=== PATIENT | female | born 1935 | race Caucasian/White ===

== ENCOUNTER 2020-07-10 17:27 | Inpatient (IN) ==
[2020-07-10 17:52] LABS: Basophils % 0.5 % (0.0-0.8); Eosinophils # 0.1 10*3/uL (0.0-0.87); Hematocrit 29.5 VOL% (35.7-47.0); Hemoglobin 9.6 GM/DL (12.0-16.0); Immature Granulocytes % 0.3 %; Immature Granulocytes Absolute 0.01 #; Lymphocytes # 1.3 10*3/uL (1.4-4.0); Lymphocytes % 33.5 % (21.3-54.2); Mean Corpuscular HGB Conc 32.5 GM/DL (32-36); Mean Corpuscular Volume 94.2 FL (87-102); Mean Platelet Volume 11.4 FL (9.6-12.0); Monocytes % 10.5 % (1.7-12.7); Neutrophils % 52.2 % (38.7-73.9); Platelet Count 162 T/CUMM (130-400); Red Blood Count 3.13 MC/CUMM (3.8-5.5); Red Cell Distribution Width 14.5 % (9.3-17.3)
[2020-07-10 18:04] LABS: INR 1.1; PT Patient Result 11.3 SECS (9.8-11.9); Partial Thromboplastin Time 25.6 SECS (23.9-33.8)
[2020-07-10 18:12] LABS: Albumin 3.2 G/DL (3.4-5.0); Calcium 8.5 MG/DL (8.5-10.1); Osmolality,Calculated 267.5 MOS/KG (273-304); Potassium 4.3 MMOL/L (3.5-5.1); Total Protein 6.5 G/DL (5.0-7.5)
[2020-07-10] MEDS ORDERED: FUROSEMIDE 40 MG/4 ML VIAL IV STA (18:57)
[2020-07-10] MEDS ORDERED: hydrALAZINE 20 MG/1 ML VIAL IV PRN (20:24)
[2020-07-10] MEDS ORDERED: GLUCAGON 1 MG VIAL IM PRN (20:24)
[2020-07-10] MEDS ORDERED: DEXTROSE 50% 25 GM/50 ML VIAL IV PRN (20:24)
[2020-07-10 20:53] LABS: Thyroid Stimulating Hormone 3.06 uIU/ml (0.358-3.74)
[2020-07-10] MEDS ORDERED: carvediloL 25 MG TABLET PO SCH (21:00)
[2020-07-10 21:18] LABS: Bacteria,Urine Occasional /HPF (Few); Bilirubin,Urine Negative (Negative); Blood, Urine Negative (Negative); Glucose,Urine (UA) Negative (Negative); Ketones,Urine Negative (Negative); Mucus,Urine Occasional /LPF (Occasional); Nitrite,Urine Negative (Negative); Protein,Urine Negative; RBC,Urine <1 /HPF (0-4); Squamous Epithelial Cell,Urine Occasional /HPF (0-10); Urine Appearance CLEAR (Clear); Urine Color Colorless (Yellow); Urine Specific Gravity 1.004 (1.001-1.035); Urine Urobilinogen < 2.0 EU/DL (0.2-1.0); WBC,Urine <1 /HPF (0-6)
[2020-07-10] MEDS: carvediloL 6.25 MG TABLET PO SCH (22:21)
[2020-07-10] MEDS: ENOXAPARIN 40 MG/0.4 ML SYRINGE SUBCUT SCH (22:22)
[2020-07-11] MEDS: LEVOTHYROXINE 50 MCG TABLET PO SCH (06:04)
[2020-07-11 06:33] LABS: Basophils % 0.2 % (0.0-0.8); Eosinophils % 0.4 % (0.00-10.9); Hematocrit 30.8 VOL% (35.7-47.0); Hemoglobin 10.1 GM/DL (12.0-16.0); Immature Granulocytes % 0.4 %; Immature Granulocytes Absolute 0.02 #; Lymphocytes # 1.1 10*3/uL (1.4-4.0); Lymphocytes % 21.1 % (21.3-54.2); Mean Corpuscular HGB Conc 32.8 GM/DL (32-36); Mean Corpuscular Volume 93.1 FL (87-102); Mean Platelet Volume 12.2 FL (9.6-12.0); Neutrophils % 70.9 % (38.7-73.9); Platelet Count 159 T/CUMM (130-400); Red Blood Count 3.31 MC/CUMM (3.8-5.5); Red Cell Distribution Width 14.1 % (9.3-17.3); White Blood Count 5.3 T/CUMM (4-12)
[2020-07-11 06:57] LABS: Albumin 3.3 G/DL (3.4-5.0); Bilirubin,Total 1.2 MG/DL (0.2-1.0); Calcium 8.4 MG/DL (8.5-10.1); Osmolality,Calculated 259.9 MOS/KG (273-304); Potassium 3.8 MMOL/L (3.5-5.1); Risk Ratio 2.9; VLDL CHOLESTEROL 16.2 MG/DL
[2020-07-11] MEDS ORDERED: ALBUTEROL/IPRATROPIUM 3 ML NEB RESP TX PRN (08:09)
[2020-07-11] MEDS ORDERED: FUROSEMIDE 40 MG/4 ML VIAL IV ONE (08:37)
[2020-07-11 08:59] LABS: % Iron Saturation 10.9 % (18-50); Ferritin 205.7 ng/ml (8-252)
[2020-07-11] MEDS ORDERED: lisinopriL 2.5 MG TABLET PO SCH (09:00)
[2020-07-11 09:02] LABS: Folate 14.3 NG/ML (5.38-24.0)
[2020-07-11] MEDS: FUROSEMIDE 40 MG/4 ML VIAL IV SCH ×2 (09:23→16:06)
[2020-07-11] MEDS: CALCIUM (CARBONATE)/VITAMIN D 600 MG-400 UNIT TABLET PO SCH (09:25)
[2020-07-11] MEDS: FERROUS SULFATE 325 MG TABLET PO SCH (09:25)
[2020-07-11] MEDS: carvediloL 6.25 MG TABLET PO SCH ×2 (09:26→20:39)
[2020-07-11] MEDS: CHOLECALCIFEROL 1,000 UNIT TABLET PO SCH (09:26)
[2020-07-11] MEDS: amLODIPine 2.5 MG TABLET PO SCH (09:26)
[2020-07-11] MEDS: ASPIRIN EC 81 MG TABLET PO SCH (09:26)
[2020-07-11] MEDS: ROSUVASTATIN 20 MG TABLET PO SCH (09:26)
[2020-07-11] MEDS: PANTOPRAZOLE 40 MG TABLET PO SCH (09:26)
[2020-07-11] MEDS: SPIRONOLACTONE 25 MG TABLET PO SCH (16:06)
[2020-07-11 16:38] LABS: Glucose,Pleural Fluid 121 MG/DL; LDH,Pleural Fluid 76 U/L
[2020-07-11 16:48] LABS: Lymphocytes,Pleural Fluid 71 %; Monocytes,Pleural Fluid 29 %
[2020-07-11 16:49] LABS: RBC,Pleural Fluid 387 T/CUMM
[2020-07-11] MEDS: ACETAMINOPHEN 325 MG TABLET PO PRN (20:39)
[2020-07-11] MEDS: ENOXAPARIN 40 MG/0.4 ML SYRINGE SUBCUT SCH (20:39)
[2020-07-12 05:36] LABS: Basophils % 0.5 % (0.0-0.8); Eosinophils # 0.1 10*3/uL (0.0-0.87); Eosinophils % 3.2 % (0.00-10.9); Hematocrit 25.8 VOL% (35.7-47.0); Hemoglobin 8.7 GM/DL (12.0-16.0); Lymphocytes # 1.6 10*3/uL (1.4-4.0); Lymphocytes % 41.7 % (21.3-54.2); Mean Corpuscular HGB Conc 33.7 GM/DL (32-36); Mean Corpuscular Volume 90.5 FL (87-102); Mean Platelet Volume 11.9 FL (9.6-12.0); Monocytes % 10.6 % (1.7-12.7); Platelet Count 145 T/CUMM (130-400); Red Blood Count 2.85 MC/CUMM (3.8-5.5); Red Cell Distribution Width 13.7 % (9.3-17.3); White Blood Count 3.8 T/CUMM (4-12)
[2020-07-12 06:04] LABS: Calcium 8.1 MG/DL (8.5-10.1); Osmolality,Calculated 261.7 MOS/KG (273-304); Potassium 3.3 MMOL/L (3.5-5.1)
[2020-07-12] MEDS: LEVOTHYROXINE 50 MCG TABLET PO SCH (06:16)
[2020-07-12] MEDS: CHOLECALCIFEROL 1,000 UNIT TABLET PO SCH (08:54)
[2020-07-12] MEDS: PANTOPRAZOLE 40 MG TABLET PO SCH (08:54)
[2020-07-12] MEDS: amLODIPine 2.5 MG TABLET PO SCH (08:54)
[2020-07-12] MEDS: ROSUVASTATIN 20 MG TABLET PO SCH (08:54)
[2020-07-12] MEDS: lisinopriL 20 MG TABLET PO SCH (08:54)
[2020-07-12] MEDS: ASPIRIN EC 81 MG TABLET PO SCH (08:54)
[2020-07-12] MEDS: FERROUS SULFATE 325 MG TABLET PO SCH (08:55)
[2020-07-12] MEDS: FUROSEMIDE 40 MG/4 ML VIAL IV SCH (08:55)
[2020-07-12] MEDS: SPIRONOLACTONE 25 MG TABLET PO SCH (08:55)
[2020-07-12] MEDS: CALCIUM (CARBONATE)/VITAMIN D 600 MG-400 UNIT TABLET PO SCH (08:55)
[2020-07-12] MEDS: carvediloL 6.25 MG TABLET PO SCH ×2 (08:55→20:14)
[2020-07-12] MEDS ORDERED: MAGNESIUM SULF RIDER 2 GM in PREMIX 1 EACH IV ONE (10:17)
[2020-07-12] MEDS ORDERED: POTASSIUM CHLORIDE 20 MEQ TABLET PO ONE (10:17)
[2020-07-12] MEDS: FUROSEMIDE 40 MG TABLET PO SCH (15:55)
[2020-07-12] MEDS: traZODone 50 MG TABLET PO SCH (20:14)
[2020-07-12] MEDS: ENOXAPARIN 40 MG/0.4 ML SYRINGE SUBCUT SCH (20:14)
[2020-07-13 05:37] LABS: Calcium 8.3 MG/DL (8.5-10.1); Osmolality,Calculated 269.1 MOS/KG (273-304); Potassium 3.6 MMOL/L (3.5-5.1)
[2020-07-13] MEDS: LEVOTHYROXINE 50 MCG TABLET PO SCH (06:32)
[2020-07-13] MEDS: CHOLECALCIFEROL 1,000 UNIT TABLET PO SCH (08:59)
[2020-07-13] MEDS: amLODIPine 2.5 MG TABLET PO SCH (08:59)
[2020-07-13] MEDS: FUROSEMIDE 40 MG TABLET PO SCH ×2 (08:59→16:03)
[2020-07-13] MEDS: ASPIRIN EC 81 MG TABLET PO SCH (08:59)
[2020-07-13] MEDS: FERROUS SULFATE 325 MG TABLET PO SCH (08:59)
[2020-07-13] MEDS: ROSUVASTATIN 20 MG TABLET PO SCH (08:59)
[2020-07-13] MEDS: CALCIUM (CARBONATE)/VITAMIN D 600 MG-400 UNIT TABLET PO SCH (09:00)
[2020-07-13] MEDS: FOLIC ACID 0.4 MG TABLET PO SCH (09:00)
[2020-07-13] MEDS: lisinopriL 20 MG TABLET PO SCH (09:00)
[2020-07-13] MEDS: PANTOPRAZOLE 40 MG TABLET PO SCH (09:00)
[2020-07-13] MEDS: carvediloL 6.25 MG TABLET PO SCH ×2 (09:00→20:17)
[2020-07-13] MEDS: SPIRONOLACTONE 25 MG TABLET PO SCH (09:00)
[2020-07-13] MEDS: ONDANSETRON 4 MG/2 ML VIAL IV PRN ×2 (12:19→21:25)
[2020-07-13] MEDS: ENOXAPARIN 40 MG/0.4 ML SYRINGE SUBCUT SCH (20:17)
[2020-07-13] MEDS: traZODone 50 MG TABLET PO SCH (20:17)
[2020-07-14] MEDS: LEVOTHYROXINE 50 MCG TABLET PO SCH (06:05)
[2020-07-14] MEDS: ASPIRIN EC 81 MG TABLET PO SCH (09:05)
[2020-07-14] MEDS: carvediloL 6.25 MG TABLET PO SCH ×2 (09:05→20:17)
[2020-07-14] MEDS: amLODIPine 2.5 MG TABLET PO SCH (09:05)
[2020-07-14] MEDS: SPIRONOLACTONE 25 MG TABLET PO SCH (09:05)
[2020-07-14] MEDS: CALCIUM (CARBONATE)/VITAMIN D 600 MG-400 UNIT TABLET PO SCH (09:05)
[2020-07-14] MEDS: FERROUS SULFATE 325 MG TABLET PO SCH (09:05)
[2020-07-14] MEDS: FUROSEMIDE 40 MG TABLET PO SCH ×2 (09:05→16:24)
[2020-07-14] MEDS: lisinopriL 20 MG TABLET PO SCH (09:05)
[2020-07-14] MEDS: PANTOPRAZOLE 40 MG TABLET PO SCH ×2 (09:05→20:17)
[2020-07-14] MEDS: CHOLECALCIFEROL 1,000 UNIT TABLET PO SCH (09:05)
[2020-07-14] MEDS: ROSUVASTATIN 20 MG TABLET PO SCH (09:05)
[2020-07-14] MEDS: FOLIC ACID 0.4 MG TABLET PO SCH (09:05)
[2020-07-14 10:27] LABS: Hematocrit 32.7 VOL% (35.7-47.0); Hemoglobin 11.1 GM/DL (12.0-16.0)
[2020-07-14] MEDS: traZODone 50 MG TABLET PO SCH (20:17)
[2020-07-15 06:01] LABS: Basophils % 0.3 % (0.0-0.8); Eosinophils # 0.1 10*3/uL (0.0-0.87); Eosinophils % 1.3 % (0.00-10.9); Hematocrit 29.7 VOL% (35.7-47.0); Immature Granulocytes % 0.3 %; Immature Granulocytes Absolute 0.02 #; Lymphocytes # 1.5 10*3/uL (1.4-4.0); Lymphocytes % 21.8 % (21.3-54.2); Mean Corpuscular HGB Conc 33.7 GM/DL (32-36); Mean Corpuscular Volume 92.2 FL (87-102); Mean Platelet Volume 11.5 FL (9.6-12.0); Monocytes % 9.6 % (1.7-12.7); Neutrophils % 66.7 % (38.7-73.9); Platelet Count 154 T/CUMM (130-400); Red Blood Count 3.22 MC/CUMM (3.8-5.5)
[2020-07-15] MEDS: LEVOTHYROXINE 50 MCG TABLET PO SCH (06:20)
[2020-07-15 06:27] LABS: Calcium 8.4 MG/DL (8.5-10.1); Osmolality,Calculated 270.1 MOS/KG (273-304); Potassium 3.3 MMOL/L (3.5-5.1)
[2020-07-15] MEDS: CHOLECALCIFEROL 1,000 UNIT TABLET PO SCH (09:55)
[2020-07-15] MEDS: CALCIUM (CARBONATE)/VITAMIN D 600 MG-400 UNIT TABLET PO SCH (09:55)
[2020-07-15] MEDS: ASPIRIN EC 81 MG TABLET PO SCH (09:55)
[2020-07-15] MEDS: FOLIC ACID 0.4 MG TABLET PO SCH (09:55)
[2020-07-15] MEDS: FERROUS SULFATE 325 MG TABLET PO SCH (09:55)
[2020-07-15] MEDS: carvediloL 6.25 MG TABLET PO SCH ×2 (09:55→20:49)
[2020-07-15] MEDS: SPIRONOLACTONE 25 MG TABLET PO SCH (09:55)
[2020-07-15] MEDS: amLODIPine 2.5 MG TABLET PO SCH (09:55)
[2020-07-15] MEDS: PANTOPRAZOLE 40 MG TABLET PO SCH ×2 (09:55→20:49)
[2020-07-15] MEDS: lisinopriL 20 MG TABLET PO SCH (09:56)
[2020-07-15] MEDS: ROSUVASTATIN 20 MG TABLET PO SCH (09:56)
[2020-07-15] MEDS: FUROSEMIDE 40 MG TABLET PO SCH ×2 (09:57→16:13)
[2020-07-15] MEDS ORDERED: POTASSIUM CHLORIDE 10 MEQ TABLET PO ONE (12:42)
[2020-07-15] MEDS: ONDANSETRON 4 MG/2 ML VIAL IV PRN ×2 (16:58→22:37)
[2020-07-15] MEDS: traZODone 50 MG TABLET PO SCH (20:49)
[2020-07-16 04:42] LABS: Basophils % 0.3 % (0.0-0.8); Eosinophils # 0.2 10*3/uL (0.0-0.87); Eosinophils % 3.4 % (0.00-10.9); Hematocrit 28.5 VOL% (35.7-47.0); Hemoglobin 9.3 GM/DL (12.0-16.0); Immature Granulocytes % 0.6 %; Immature Granulocytes Absolute 0.04 #; Lymphocytes # 1.7 10*3/uL (1.4-4.0); Lymphocytes % 25.4 % (21.3-54.2); Mean Corpuscular HGB Conc 32.6 GM/DL (32-36); Mean Corpuscular Volume 93.8 FL (87-102); Mean Platelet Volume 11.2 FL (9.6-12.0); Monocytes % 11.9 % (1.7-12.7); Neutrophils % 58.4 % (38.7-73.9); Platelet Count 163 T/CUMM (130-400); Red Blood Count 3.04 MC/CUMM (3.8-5.5); Red Cell Distribution Width 14.1 % (9.3-17.3); White Blood Count 6.5 T/CUMM (4-12)
[2020-07-16 05:04] LABS: Calcium 8.3 MG/DL (8.5-10.1); Osmolality,Calculated 269.4 MOS/KG (273-304); Potassium 3.5 MMOL/L (3.5-5.1)
[2020-07-16] MEDS: LEVOTHYROXINE 50 MCG TABLET PO SCH (06:22)
[2020-07-16] MEDS: ASPIRIN EC 81 MG TABLET PO SCH (10:06)
[2020-07-16] MEDS: carvediloL 6.25 MG TABLET PO SCH ×2 (10:08→20:36)
[2020-07-16] MEDS: CALCIUM (CARBONATE)/VITAMIN D 600 MG-400 UNIT TABLET PO SCH (12:05)
[2020-07-16] MEDS: FERROUS SULFATE 325 MG TABLET PO SCH (12:05)
[2020-07-16] MEDS: ROSUVASTATIN 20 MG TABLET PO SCH (12:05)
[2020-07-16] MEDS: FOLIC ACID 0.4 MG TABLET PO SCH (12:05)
[2020-07-16] MEDS: SPIRONOLACTONE 25 MG TABLET PO SCH (12:05)
[2020-07-16] MEDS: CHOLECALCIFEROL 1,000 UNIT TABLET PO SCH (12:06)
[2020-07-16] MEDS: PANTOPRAZOLE 40 MG TABLET PO SCH ×2 (12:06→20:36)
[2020-07-16] MEDS: amLODIPine 2.5 MG TABLET PO SCH (12:06)
[2020-07-16] MEDS ORDERED: diphenhydrAMINE CAP 25 MG CAPSULE PO ONE (12:30)
[2020-07-16] MEDS ORDERED: ceFAZolin 1,000 MG in SYRINGE 1 EACH IV ONE (12:30)
[2020-07-16] MEDS ORDERED: DIAZEPAM 5 MG TABLET PO ONE (12:30)
[2020-07-16] MEDS ORDERED: LIDOCAINE 1%/EPI INJ 20 ML VIAL ONE (12:45)
[2020-07-16] MEDS ORDERED: ceFAZolin 1,000 MG VIAL ONE (12:45)
[2020-07-16] MEDS ORDERED: TISSUE ADHESIVE 1 EACH APPLICATOR TOP ONE (12:45)
[2020-07-16] MEDS ORDERED: ceFAZolin 1,000 MG VIAL IRRIG ONE (13:30)
[2020-07-16] MEDS ORDERED: propofoL 200 MG/20 ML VIAL IV ONE (15:09)
[2020-07-16] MEDS ORDERED: PHENYLEPHRINE 1 MG/10 ML SYRINGE IV ONE (15:10)
[2020-07-16] MEDS ORDERED: ETOMIDATE 40 MG/20 ML VIAL IV ONE (15:10)
[2020-07-16] MEDS: traMADol 50 MG TABLET PO PRN (20:36)
[2020-07-16] MEDS: traZODone 50 MG TABLET PO SCH (20:36)
[2020-07-17] MEDS: LEVOTHYROXINE 50 MCG TABLET PO SCH (06:03)
[2020-07-17 06:12] LABS: Basophils % 0.4 % (0.0-0.8); Eosinophils # 0.4 10*3/uL (0.0-0.87); Eosinophils % 5.5 % (0.00-10.9); Hematocrit 30.3 VOL% (35.7-47.0); Hemoglobin 10.2 GM/DL (12.0-16.0); Immature Granulocytes % 0.4 %; Immature Granulocytes Absolute 0.03 #; Lymphocytes # 1.8 10*3/uL (1.4-4.0); Mean Corpuscular HGB Conc 33.7 GM/DL (32-36); Mean Corpuscular Volume 92.7 FL (87-102); Monocytes % 11.3 % (1.7-12.7); Neutrophils % 57.4 % (38.7-73.9); Platelet Count 132 T/CUMM (130-400); Red Blood Count 3.27 MC/CUMM (3.8-5.5); Red Cell Distribution Width 13.9 % (9.3-17.3); White Blood Count 7.3 T/CUMM (4-12)
[2020-07-17 06:36] LABS: Hypochromasia 1+; Microcytosis 1+; Ovalocytes Few
[2020-07-17 06:37] LABS: Platelet Estimate Adequate
[2020-07-17 06:44] LABS: Calcium 8.6 MG/DL (8.5-10.1); Osmolality,Calculated 271.2 MOS/KG (273-304); Potassium 3.9 MMOL/L (3.5-5.1)
[2020-07-17] MEDS: PANTOPRAZOLE 40 MG TABLET PO SCH ×2 (09:59→20:31)
[2020-07-17] MEDS: SPIRONOLACTONE 25 MG TABLET PO SCH (09:59)
[2020-07-17] MEDS: CHOLECALCIFEROL 1,000 UNIT TABLET PO SCH (09:59)
[2020-07-17] MEDS: ASPIRIN EC 81 MG TABLET PO SCH (09:59)
[2020-07-17] MEDS: FERROUS SULFATE 325 MG TABLET PO SCH (09:59)
[2020-07-17] MEDS: FOLIC ACID 0.4 MG TABLET PO SCH (09:59)
[2020-07-17] MEDS: ROSUVASTATIN 20 MG TABLET PO SCH (09:59)
[2020-07-17] MEDS: lisinopriL 20 MG TABLET PO SCH (10:06)
[2020-07-17] MEDS: CALCIUM (CARBONATE)/VITAMIN D 600 MG-400 UNIT TABLET PO SCH (10:06)
[2020-07-17] MEDS: amLODIPine 2.5 MG TABLET PO SCH (11:09)
[2020-07-17] MEDS: carvediloL 6.25 MG TABLET PO SCH (11:10)
[2020-07-17] MEDS: cefTRIAXone 1,000 MG in SYRINGE 1 EACH IV SCH (13:21)
[2020-07-17] MEDS: AZITHROMYCIN INJ 250 MG in SODIUM CHLORIDE 0.9% 250 ML IV SCH (15:09)
[2020-07-17] MEDS: FUROSEMIDE 40 MG TABLET PO SCH (16:35)
[2020-07-17] MEDS: traZODone 50 MG TABLET PO SCH (20:30)
[2020-07-17] MEDS: ENOXAPARIN 40 MG/0.4 ML SYRINGE SUBCUT SCH (20:31)
[2020-07-17] MEDS: carvediloL 12.5 MG TABLET PO SCH (20:31)
[2020-07-18] MEDS: ACETAMINOPHEN 325 MG TABLET PO PRN ×2 (05:36→18:19)
[2020-07-18 05:58] LABS: Basophils % 0.4 % (0.0-0.8); Eosinophils # 0.3 10*3/uL (0.0-0.87); Eosinophils % 3.6 % (0.00-10.9); Hematocrit 31.9 VOL% (35.7-47.0); Hemoglobin 10.5 GM/DL (12.0-16.0); Immature Granulocytes % 0.6 %; Immature Granulocytes Absolute 0.04 #; Lymphocytes # 1.6 10*3/uL (1.4-4.0); Lymphocytes % 22.5 % (21.3-54.2); Mean Corpuscular HGB Conc 32.9 GM/DL (32-36); Mean Corpuscular Volume 92.2 FL (87-102); Mean Platelet Volume 11.1 FL (9.6-12.0); Neutrophils % 61.9 % (38.7-73.9); Platelet Count 119 T/CUMM (130-400); Red Blood Count 3.46 MC/CUMM (3.8-5.5); Red Cell Distribution Width 13.8 % (9.3-17.3); White Blood Count 7.2 T/CUMM (4-12)
[2020-07-18] MEDS: LEVOTHYROXINE 50 MCG TABLET PO SCH (06:03)
[2020-07-18 06:13] LABS: Calcium 8.9 MG/DL (8.5-10.1); Osmolality,Calculated 268.4 MOS/KG (273-304); Potassium 3.8 MMOL/L (3.5-5.1)
[2020-07-18 06:36] LABS: Hypochromasia 1+; Microcytosis 1+; Ovalocytes Slight
[2020-07-18] MEDS: CHOLECALCIFEROL 1,000 UNIT TABLET PO SCH (08:59)
[2020-07-18] MEDS: ASPIRIN EC 81 MG TABLET PO SCH (08:59)
[2020-07-18] MEDS: FOLIC ACID 0.4 MG TABLET PO SCH (08:59)
[2020-07-18] MEDS: SPIRONOLACTONE 25 MG TABLET PO SCH (08:59)
[2020-07-18] MEDS: lisinopriL 20 MG TABLET PO SCH (08:59)
[2020-07-18] MEDS: ROSUVASTATIN 20 MG TABLET PO SCH (09:00)
[2020-07-18] MEDS: FUROSEMIDE 40 MG TABLET PO SCH ×2 (09:00→16:00)
[2020-07-18] MEDS: carvediloL 12.5 MG TABLET PO SCH ×2 (09:00→20:17)
[2020-07-18] MEDS: CALCIUM (CARBONATE)/VITAMIN D 600 MG-400 UNIT TABLET PO SCH (09:00)
[2020-07-18] MEDS: traMADol 50 MG TABLET PO PRN (09:05)
[2020-07-18] MEDS: PANTOPRAZOLE 40 MG TABLET PO SCH ×2 (09:05→20:15)
[2020-07-18] MEDS: FERROUS SULFATE 325 MG TABLET PO SCH (09:05)
[2020-07-18] MEDS: cefTRIAXone 1,000 MG in SYRINGE 1 EACH IV SCH (11:59)
[2020-07-18] MEDS: AZITHROMYCIN INJ 250 MG in SODIUM CHLORIDE 0.9% 250 ML IV SCH (13:39)
[2020-07-18] MEDS: ENOXAPARIN 40 MG/0.4 ML SYRINGE SUBCUT SCH (20:15)
[2020-07-18] MEDS: traZODone 50 MG TABLET PO SCH (20:17)
[2020-07-19] MEDS: traMADol 50 MG TABLET PO PRN (05:09)
[2020-07-19 05:46] LABS: Basophils % 0.3 % (0.0-0.8); Eosinophils # 0.1 10*3/uL (0.0-0.87); Eosinophils % 1.5 % (0.00-10.9); Hematocrit 26.9 VOL% (35.7-47.0); Immature Granulocytes % 0.4 %; Immature Granulocytes Absolute 0.04 #; Lymphocytes # 1.7 10*3/uL (1.4-4.0); Lymphocytes % 18.4 % (21.3-54.2); Mean Corpuscular HGB Conc 33.5 GM/DL (32-36); Mean Corpuscular Volume 91.8 FL (87-102); Monocytes % 11.1 % (1.7-12.7); Neutrophils % 68.3 % (38.7-73.9); Platelet Count 106 T/CUMM (130-400); Red Blood Count 2.93 MC/CUMM (3.8-5.5); Red Cell Distribution Width 13.5 % (9.3-17.3); White Blood Count 9.3 T/CUMM (4-12)
[2020-07-19 05:48] LABS: Calcium 8.6 MG/DL (8.5-10.1); Osmolality,Calculated 267.5 MOS/KG (273-304); Potassium 3.8 MMOL/L (3.5-5.1)
[2020-07-19] MEDS: LEVOTHYROXINE 50 MCG TABLET PO SCH (06:13)
[2020-07-19 06:26] LABS: Hypochromasia 1+; Microcytosis 1+
[2020-07-19 06:27] LABS: Ovalocytes Few
[2020-07-19 06:28] LABS: Platelet Estimate Adequate
[2020-07-19] MEDS: CALCIUM (CARBONATE)/VITAMIN D 600 MG-400 UNIT TABLET PO SCH (09:45)
[2020-07-19] MEDS: lisinopriL 20 MG TABLET PO SCH (09:45)
[2020-07-19] MEDS: PANTOPRAZOLE 40 MG TABLET PO SCH ×2 (09:45→21:09)
[2020-07-19] MEDS: FUROSEMIDE 40 MG TABLET PO SCH (09:45)
[2020-07-19] MEDS: carvediloL 12.5 MG TABLET PO SCH ×2 (09:46→21:09)
[2020-07-19] MEDS: FOLIC ACID 0.4 MG TABLET PO SCH (09:46)
[2020-07-19] MEDS: SPIRONOLACTONE 25 MG TABLET PO SCH (09:46)
[2020-07-19] MEDS: CHOLECALCIFEROL 1,000 UNIT TABLET PO SCH (09:46)
[2020-07-19] MEDS: ROSUVASTATIN 20 MG TABLET PO SCH (09:46)
[2020-07-19] MEDS: LEVOFLOXACIN INJ 750 MG in PREMIX 1 EACH IV SCH (09:46)
[2020-07-19] MEDS: ASPIRIN EC 81 MG TABLET PO SCH (09:46)
[2020-07-19] MEDS: FERROUS SULFATE 325 MG TABLET PO SCH (09:46)
[2020-07-19] MEDS: ACETAMINOPHEN 325 MG TABLET PO PRN (10:20)
[2020-07-19] MEDS: ONDANSETRON 4 MG/2 ML VIAL IV PRN (17:19)
[2020-07-19] MEDS: traZODone 50 MG TABLET PO SCH (21:09)
[2020-07-20] MEDS: traMADol 50 MG TABLET PO PRN ×2 (05:04→21:24)
[2020-07-20] MEDS: ONDANSETRON 4 MG/2 ML VIAL IV PRN (05:05)
[2020-07-20] MEDS: LEVOTHYROXINE 50 MCG TABLET PO SCH (06:34)
[2020-07-20] MEDS: CALCIUM (CARBONATE)/VITAMIN D 600 MG-400 UNIT TABLET PO SCH (08:20)
[2020-07-20] MEDS: ASPIRIN EC 81 MG TABLET PO SCH (08:20)
[2020-07-20] MEDS: lisinopriL 20 MG TABLET PO SCH (08:20)
[2020-07-20] MEDS: FOLIC ACID 0.4 MG TABLET PO SCH (08:20)
[2020-07-20] MEDS: ROSUVASTATIN 20 MG TABLET PO SCH (08:21)
[2020-07-20] MEDS: PANTOPRAZOLE 40 MG TABLET PO SCH ×2 (08:21→21:24)
[2020-07-20] MEDS: CHOLECALCIFEROL 1,000 UNIT TABLET PO SCH (08:21)
[2020-07-20] MEDS: carvediloL 12.5 MG TABLET PO SCH ×2 (08:21→21:23)
[2020-07-20] MEDS: FERROUS SULFATE 325 MG TABLET PO SCH (08:21)
[2020-07-20] MEDS: FUROSEMIDE 40 MG TABLET PO SCH (08:21)
[2020-07-20] MEDS: SPIRONOLACTONE 25 MG TABLET PO SCH (08:22)
[2020-07-20 08:54] LABS: Basophils % 0.2 % (0.0-0.8); Eosinophils # 0.2 10*3/uL (0.0-0.87); Eosinophils % 2.3 % (0.00-10.9); Hematocrit 26.4 VOL% (35.7-47.0); Immature Granulocytes % 0.5 %; Immature Granulocytes Absolute 0.04 #; Lymphocytes # 1.4 10*3/uL (1.4-4.0); Lymphocytes % 15.7 % (21.3-54.2); Mean Corpuscular HGB Conc 34.1 GM/DL (32-36); Mean Platelet Volume 11.5 FL (9.6-12.0); Monocytes % 11.4 % (1.7-12.7); Neutrophils % 69.9 % (38.7-73.9); Platelet Count 129 T/CUMM (130-400); Red Cell Distribution Width 13.3 % (9.3-17.3); White Blood Count 8.6 T/CUMM (4-12)
[2020-07-20] MEDS: ACETAMINOPHEN 325 MG TABLET PO PRN (09:14)
[2020-07-20 09:19] LABS: Calcium 8.6 MG/DL (8.5-10.1); Osmolality,Calculated 268.8 MOS/KG (273-304); Potassium 4.1 MMOL/L (3.5-5.1)
[2020-07-20 10:10] LABS: Elliptocytes Few; Ovalocytes Few; Platelet Estimate Adequate
[2020-07-20] MEDS: traZODone 50 MG TABLET PO SCH (21:23)
[2020-07-21 03:49] LABS: Basophils % 0.3 % (0.0-0.8); Eosinophils # 0.2 10*3/uL (0.0-0.87); Eosinophils % 3.3 % (0.00-10.9); Hemoglobin 7.9 GM/DL (12.0-16.0); Immature Granulocytes % 0.5 %; Immature Granulocytes Absolute 0.03 #; Lymphocytes # 1.3 10*3/uL (1.4-4.0); Lymphocytes % 21.5 % (21.3-54.2); Mean Corpuscular HGB Conc 32.9 GM/DL (32-36); Mean Corpuscular Volume 91.6 FL (87-102); Monocytes % 12.4 % (1.7-12.7); Platelet Count 120 T/CUMM (130-400); Red Blood Count 2.62 MC/CUMM (3.8-5.5); Red Cell Distribution Width 13.3 % (9.3-17.3)
[2020-07-21 04:11] LABS: Calcium 8.2 MG/DL (8.5-10.1); Osmolality,Calculated 267.8 MOS/KG (273-304); Potassium 3.7 MMOL/L (3.5-5.1)
[2020-07-21 04:59] LABS: Microcytosis Slight; Ovalocytes 1+
[2020-07-21 05:00] LABS: Schistocytes Few
[2020-07-21 05:01] LABS: Platelet Estimate Normal
[2020-07-21] MEDS: LEVOTHYROXINE 50 MCG TABLET PO SCH (06:28)
[2020-07-21] MEDS: PANTOPRAZOLE 40 MG TABLET PO SCH ×2 (08:47→20:22)
[2020-07-21] MEDS: ROSUVASTATIN 20 MG TABLET PO SCH (08:47)
[2020-07-21] MEDS: carvediloL 12.5 MG TABLET PO SCH ×2 (08:47→20:22)
[2020-07-21] MEDS: CHOLECALCIFEROL 1,000 UNIT TABLET PO SCH (08:47)
[2020-07-21] MEDS: CALCIUM (CARBONATE)/VITAMIN D 600 MG-400 UNIT TABLET PO SCH (08:47)
[2020-07-21] MEDS: FERROUS SULFATE 325 MG TABLET PO SCH (08:47)
[2020-07-21] MEDS: ASPIRIN EC 81 MG TABLET PO SCH (08:47)
[2020-07-21] MEDS: FOLIC ACID 0.4 MG TABLET PO SCH (08:47)
[2020-07-21] MEDS: LEVOFLOXACIN INJ 750 MG in PREMIX 1 EACH IV SCH (08:48)
[2020-07-21] MEDS: ACETAMINOPHEN 325 MG TABLET PO PRN (13:50)
[2020-07-21] MEDS: traZODone 50 MG TABLET PO SCH (20:22)
[2020-07-22] MEDS: ACETAMINOPHEN 325 MG TABLET PO PRN (00:11)
[2020-07-22 05:54] LABS: Basophils % 0.4 % (0.0-0.8); Eosinophils # 0.2 10*3/uL (0.0-0.87); Eosinophils % 3.7 % (0.00-10.9); Hematocrit 26.2 VOL% (35.7-47.0); Hemoglobin 8.8 GM/DL (12.0-16.0); Immature Granulocytes % 0.6 %; Immature Granulocytes Absolute 0.03 #; Lymphocytes # 1.3 10*3/uL (1.4-4.0); Lymphocytes % 23.5 % (21.3-54.2); Mean Corpuscular HGB Conc 33.6 GM/DL (32-36); Mean Corpuscular Volume 91.9 FL (87-102); Mean Platelet Volume 11.1 FL (9.6-12.0); Monocytes % 12.2 % (1.7-12.7); Neutrophils % 59.6 % (38.7-73.9); Platelet Count 131 T/CUMM (130-400); Red Blood Count 2.85 MC/CUMM (3.8-5.5); Red Cell Distribution Width 13.1 % (9.3-17.3); White Blood Count 5.4 T/CUMM (4-12)
[2020-07-22] MEDS: LEVOTHYROXINE 50 MCG TABLET PO SCH (06:02)
[2020-07-22 06:11] LABS: Calcium 8.8 MG/DL (8.5-10.1); Osmolality,Calculated 264.9 MOS/KG (273-304); Potassium 4.2 MMOL/L (3.5-5.1)
[2020-07-22 06:22] LABS: Eosinophils 7 % (0-10); Hypochromasia 1+; Lymphocytes 20 % (20-55); Microcytosis 1+; Ovalocytes Slight; Platelet Estimate Normal; Segmented Neutrophils 62 % (50-85); Total Cells Counted 100
[2020-07-22] MEDS: ROSUVASTATIN 20 MG TABLET PO SCH (08:35)
[2020-07-22] MEDS: CHOLECALCIFEROL 1,000 UNIT TABLET PO SCH (08:35)
[2020-07-22] MEDS: carvediloL 12.5 MG TABLET PO SCH (08:35)
[2020-07-22] MEDS: FOLIC ACID 0.4 MG TABLET PO SCH (08:35)
[2020-07-22] MEDS: PANTOPRAZOLE 40 MG TABLET PO SCH (08:36)
[2020-07-22] MEDS: ASPIRIN EC 81 MG TABLET PO SCH (08:36)
[2020-07-22] MEDS: FERROUS SULFATE 325 MG TABLET PO SCH (08:36)
[2020-07-22] MEDS: CALCIUM (CARBONATE)/VITAMIN D 600 MG-400 UNIT TABLET PO SCH (08:40)
[2020-07-22 12:13] VITALS: BP 103/41
== END 2020-07-22 15:32 | disposition swing bed (61) | DRG 226 ==
LOC: N.ED 17:27 → SUATTDRO 20:21 → N.EDINP 20:21 → N.TELES 21:24
PROVIDERS: ADMIT Internal Medicine; ATTEND Internal Medicine

== ENCOUNTER 2022-03-13 14:09 | Inpatient (IN) ==
[2022-03-13] MEDS ORDERED: ALUM/MAG/SIMETH/LIDO VISC 1:1 30 ML BOTTLE PO STA (14:25)
[2022-03-13] MEDS ORDERED: LABETALOL 20 MG/4 ML SYRINGE IV STA (14:25)
[2022-03-13 14:36] LABS: Basophils % 0.6 % (0.0-0.8); Eosinophils # 0.2 10*3/uL (0.0-0.87); Hematocrit 29.6 VOL% (35.7-47.0); Hemoglobin 9.7 GM/DL (12.0-16.0); Immature Granulocytes % 0.4 %; Immature Granulocytes Absolute 0.02 #; Lymphocytes # 1.8 10*3/uL (1.4-4.0); Lymphocytes % 36.4 % (21.3-54.2); Mean Corpuscular HGB Conc 32.8 GM/DL (32-36); Mean Corpuscular Volume 103.1 FL (87-102); Mean Platelet Volume 10.3 FL (9.6-12.0); Monocytes # 0.6 10*3/uL (0.11-0.8); Monocytes % 12.5 % (1.7-12.7); Neutrophils % 46.1 % (38.7-73.9); Platelet Count 137 T/CUMM (130-400); Red Blood Count 2.87 MC/CUMM (3.8-5.5)
[2022-03-13 14:51] LABS: Alanine Aminotransferase 15 U/L (13-56); Albumin 3.4 G/DL (3.4-5.0); Alkaline Phosphatase 52 U/L (45-117); Aspartate Amino Transferase 13 U/L (0-37); Bilirubin,Total < 0.39 MG/DL (0.20-1.00); Blood Urea Nitrogen 39 MG/DL (7-18); Calcium 9.2 MG/DL (8.5-10.1); Carbon Dioxide 26 MMOL/L (21-32); Chloride 108 MMOL/L (98-107); Glucose 99 MG/DL (74-106); Osmolality,Calculated 281.8 MOS/KG (273-304); PT Patient Result 10.7 SECS (10.1-12.1); Potassium 5.7 MMOL/L (3.5-5.1); Sodium 137 MMOL/L (136-145); Total Protein 7.2 G/DL (6.4-8.2)
[2022-03-13] MEDS ORDERED: hydrALAZINE 20 MG/1 ML VIAL IV STA (14:51)
[2022-03-13] MEDS ORDERED: SODIUM CHLORIDE 0.9% 500 ML IV STA (15:04)
[2022-03-13] MEDS ORDERED: NITROGLYCERIN SL 0.4 MG TABLET SL PRN (17:03)
[2022-03-13] MEDS ORDERED: DOCUSATE SODIUM 100 MG CAPSULE PO PRN (17:03)
[2022-03-13] MEDS ORDERED: ONDANSETRON 4 MG/2 ML VIAL IV PRN (17:03)
[2022-03-13] MEDS ORDERED: hydrALAZINE 20 MG/1 ML VIAL IV PRN (17:05)
[2022-03-13 17:32] LABS: Risk Ratio 2.7; Thyroid Stimulating Hormone 4.84 uIU/ml (0.358-3.74)
[2022-03-13] MEDS ORDERED: MAGNESIUM SULF RIDER 2 GM/50 ML PREMIX IV ONE ×2 (17:55→18:24)
[2022-03-13 18:19] LABS: Free T4 (Free Thyroxine) 0.86 NG/DL (0.76-1.46)
[2022-03-13] MEDS ORDERED: ALUM/MAG/SIMETH/LIDO VISC 1:1 30 ML BOTTLE PO ONE (18:27)
[2022-03-13 19:00] LABS: Folate 8.96 NG/ML (5.38-24.0)
[2022-03-13] MEDS ORDERED: LORazepam 2 MG/1 ML VIAL IV PRN (19:29)
[2022-03-13] MEDS: FERROUS SULFATE 325 MG TABLET PO SCH (20:45)
[2022-03-13] MEDS ORDERED: HEPARIN 5,000 UNIT/1 ML VIAL SUBCUT SCH (21:00)
[2022-03-13] MEDS ORDERED: carvediloL 6.25 MG TABLET PO SCH (21:00)
[2022-03-13] MEDS: ASPIRIN EC 325 MG TABLET PO SCH (23:01)
[2022-03-14 05:12] LABS: Basophils % 0.4 % (0.0-0.8); Eosinophils # 0.1 10*3/uL (0.0-0.87); Eosinophils % 2.5 % (0.00-10.9); Hematocrit 27.3 VOL% (35.7-47.0); Immature Granulocytes % 0.2 %; Immature Granulocytes Absolute 0.01 #; Lymphocytes # 1.7 10*3/uL (1.4-4.0); Lymphocytes % 32.7 % (21.3-54.2); Mean Platelet Volume 10.3 FL (9.6-12.0); Monocytes # 0.7 10*3/uL (0.11-0.8); Monocytes % 13.8 % (1.7-12.7); Neutrophils % 50.4 % (38.7-73.9); Platelet Count 124 T/CUMM (130-400); Red Blood Count 2.65 MC/CUMM (3.8-5.5); White Blood Count 5.1 T/CUMM (4-12)
[2022-03-14 05:40] LABS: % Iron Saturation 27.4 % (18-50)
[2022-03-14 05:41] LABS: Calcium 8.7 MG/DL (8.5-10.1); Osmolality,Calculated 285.4 MOS/KG (273-304); Potassium 5.5 MMOL/L (3.5-5.1)
[2022-03-14] MEDS ORDERED: LEVOTHYROXINE 50 MCG TABLET PO SCH (06:30)
[2022-03-14] MEDS: LEVOTHYROXINE 75 MCG TABLET PO SCH (07:01)
[2022-03-14] MEDS ORDERED: ASPIRIN EC 81 MG TABLET PO SCH (09:00)
[2022-03-14] MEDS ORDERED: ENOXAPARIN 40 MG/0.4 ML SYRINGE SUBCUT SCH (09:00)
[2022-03-14] MEDS ORDERED: FUROSEMIDE 40 MG TABLET PO SCH (09:00)
[2022-03-14] MEDS ORDERED: SPIRONOLACTONE 50 MG TABLET PO SCH (09:00)
[2022-03-14] MEDS ORDERED: ENOXAPARIN 60 MG/0.6 ML SYRINGE SUBCUT SCH (09:00)
[2022-03-14] MEDS ORDERED: VALSARTAN 80 MG TABLET PO SCH (09:00)
[2022-03-14] MEDS: carvediloL 25 MG TABLET PO SCH ×2 (09:20→16:44)
[2022-03-14] MEDS: PRAZOSIN 1 MG CAPSULE PO SCH (09:20)
[2022-03-14] MEDS: PANTOPRAZOLE 40 MG TABLET PO SCH (09:21)
[2022-03-14] MEDS: MEMANTINE 5 MG TABLET PO SCH (09:21)
[2022-03-14] MEDS: ASPIRIN EC 325 MG TABLET PO SCH (09:21)
[2022-03-14] MEDS: FERROUS SULFATE 325 MG TABLET PO SCH ×2 (09:21→22:27)
[2022-03-14] MEDS: ATORVASTATIN 20 MG TABLET PO SCH (09:21)
[2022-03-14] MEDS: SODIUM ZIRCONIUM CYCLOSILICATE 10 GM PACK PO SCH (12:10)
[2022-03-14] MEDS: ISOSORBIDE MONONITRATE 30 MG TABLET PO SCH (12:41)
[2022-03-14] MEDS: ENOXAPARIN 60 MG/0.6 ML SYRINGE SUBCUT SCH (22:29)
[2022-03-15 06:07] LABS: Basophils % 0.7 % (0.0-0.8); Eosinophils # 0.3 10*3/uL (0.0-0.87); Eosinophils % 4.6 % (0.00-10.9); Hematocrit 24.3 VOL% (35.7-47.0); Immature Granulocytes % 0.4 %; Immature Granulocytes Absolute 0.02 #; Lymphocytes # 2.2 10*3/uL (1.4-4.0); Lymphocytes % 39.5 % (21.3-54.2); Mean Corpuscular HGB Conc 32.9 GM/DL (32-36); Mean Corpuscular Volume 103.8 FL (87-102); Mean Platelet Volume 10.9 FL (9.6-12.0); Monocytes # 0.8 10*3/uL (0.11-0.8); Monocytes % 14.1 % (1.7-12.7); Neutrophils % 40.7 % (38.7-73.9); Platelet Count 112 T/CUMM (130-400); Red Blood Count 2.34 MC/CUMM (3.8-5.5); Red Cell Distribution Width 12.1 % (9.3-17.3); White Blood Count 5.6 T/CUMM (4-12)
[2022-03-15 06:26] LABS: Calcium 8.3 MG/DL (8.5-10.1); Calcium 8.4 MG/DL (8.5-10.1); Osmolality,Calculated 284.8 MOS/KG (273-304); Osmolality,Calculated 288.5 MOS/KG (273-304); Potassium 4.9 MMOL/L (3.5-5.1)
[2022-03-15] MEDS: LEVOTHYROXINE 75 MCG TABLET PO SCH (07:24)
[2022-03-15] MEDS: ISOSORBIDE MONONITRATE 30 MG TABLET PO SCH (10:23)
[2022-03-15] MEDS: ASPIRIN EC 325 MG TABLET PO SCH (10:24)
[2022-03-15] MEDS: FERROUS SULFATE 325 MG TABLET PO SCH ×2 (10:24→21:17)
[2022-03-15] MEDS: amLODIPine 10 MG TABLET PO SCH (10:24)
[2022-03-15] MEDS: PANTOPRAZOLE 40 MG TABLET PO SCH (10:25)
[2022-03-15] MEDS: ATORVASTATIN 20 MG TABLET PO SCH (10:25)
[2022-03-15] MEDS: carvediloL 25 MG TABLET PO SCH ×2 (10:25→17:40)
[2022-03-15] MEDS: SODIUM ZIRCONIUM CYCLOSILICATE 10 GM PACK PO SCH (10:26)
[2022-03-15] MEDS: PRAZOSIN 1 MG CAPSULE PO SCH (10:26)
[2022-03-15] MEDS: MEMANTINE 5 MG TABLET PO SCH (10:26)
[2022-03-15] MEDS: ENOXAPARIN 60 MG/0.6 ML SYRINGE SUBCUT SCH ×2 (10:27→21:17)
[2022-03-16 06:04] LABS: Basophils % 0.6 % (0.0-0.8); Eosinophils # 0.2 10*3/uL (0.0-0.87); Hematocrit 25.6 VOL% (35.7-47.0); Hemoglobin 8.3 GM/DL (12.0-16.0); Immature Granulocytes % 0.2 %; Immature Granulocytes Absolute 0.01 #; Lymphocytes # 1.8 10*3/uL (1.4-4.0); Mean Corpuscular HGB Conc 32.4 GM/DL (32-36); Mean Corpuscular Volume 102.4 FL (87-102); Mean Platelet Volume 10.8 FL (9.6-12.0); Monocytes # 0.6 10*3/uL (0.11-0.8); Monocytes % 13.9 % (1.7-12.7); Neutrophils % 41.3 % (38.7-73.9); Platelet Count 116 T/CUMM (130-400); Red Cell Distribution Width 11.9 % (9.3-17.3); White Blood Count 4.6 T/CUMM (4-12)
[2022-03-16 06:12] LABS: Calcium 8.4 MG/DL (8.5-10.1); Osmolality,Calculated 288.5 MOS/KG (273-304); Potassium 4.3 MMOL/L (3.5-5.1)
[2022-03-16] MEDS: LEVOTHYROXINE 75 MCG TABLET PO SCH (06:21)
[2022-03-16] MEDS: SODIUM ZIRCONIUM CYCLOSILICATE 10 GM PACK PO SCH (09:00)
[2022-03-16] MEDS: PRAZOSIN 1 MG CAPSULE PO SCH (09:01)
[2022-03-16] MEDS: ENOXAPARIN 60 MG/0.6 ML SYRINGE SUBCUT SCH (09:01)
[2022-03-16] MEDS: amLODIPine 10 MG TABLET PO SCH (09:02)
[2022-03-16] MEDS: FERROUS SULFATE 325 MG TABLET PO SCH (09:02)
[2022-03-16] MEDS: PANTOPRAZOLE 40 MG TABLET PO SCH (09:02)
[2022-03-16] MEDS: ISOSORBIDE MONONITRATE 30 MG TABLET PO SCH (09:02)
[2022-03-16] MEDS: ATORVASTATIN 40 MG TABLET PO SCH (09:02)
[2022-03-16] MEDS: ASPIRIN EC 81 MG TABLET PO SCH (09:02)
[2022-03-16] MEDS: MEMANTINE 5 MG TABLET PO SCH (09:02)
[2022-03-16] MEDS: carvediloL 25 MG TABLET PO SCH ×2 (09:02→16:45)
[2022-03-16] MEDS: hydrALAZINE 25 MG TABLET PO SCH ×3 (10:15→20:37)
[2022-03-16] MEDS: SODIUM CHLORIDE 0.45% 1,000 ML IV SCH (10:58)
[2022-03-16] MEDS ORDERED: ENOXAPARIN 60 MG/0.6 ML SYRINGE SUBCUT SCH (21:00)
[2022-03-17 04:57] LABS: Basophils % 0.4 % (0.0-0.8); Eosinophils # 0.2 10*3/uL (0.0-0.87); Eosinophils % 3.9 % (0.00-10.9); Hematocrit 22.7 VOL% (35.7-47.0); Hemoglobin 7.6 GM/DL (12.0-16.0); Immature Granulocytes % 0.2 %; Immature Granulocytes Absolute 0.01 #; Lymphocytes # 1.8 10*3/uL (1.4-4.0); Lymphocytes % 34.7 % (21.3-54.2); Mean Corpuscular HGB Conc 33.5 GM/DL (32-36); Mean Corpuscular Volume 101.3 FL (87-102); Mean Platelet Volume 10.7 FL (9.6-12.0); Monocytes # 0.8 10*3/uL (0.11-0.8); Monocytes % 14.8 % (1.7-12.7); Platelet Count 119 T/CUMM (130-400); Red Blood Count 2.24 MC/CUMM (3.8-5.5); Red Cell Distribution Width 11.9 % (9.3-17.3); White Blood Count 5.1 T/CUMM (4-12)
[2022-03-17 05:31] LABS: Calcium 8.1 MG/DL (8.5-10.1); Osmolality,Calculated 288.7 MOS/KG (273-304); Potassium 4.6 MMOL/L (3.5-5.1)
[2022-03-17 05:40] LABS: Ovalocytes Slight; Platelet Estimate Adequate
[2022-03-17] MEDS: LEVOTHYROXINE 75 MCG TABLET PO SCH (06:28)
[2022-03-17] MEDS: hydrALAZINE 25 MG TABLET PO SCH ×3 (08:35→21:55)
[2022-03-17] MEDS: ATORVASTATIN 40 MG TABLET PO SCH (08:35)
[2022-03-17] MEDS: PANTOPRAZOLE 40 MG TABLET PO SCH (08:35)
[2022-03-17] MEDS: ASPIRIN EC 81 MG TABLET PO SCH (08:35)
[2022-03-17] MEDS: ISOSORBIDE MONONITRATE 30 MG TABLET PO SCH (08:35)
[2022-03-17] MEDS: MEMANTINE 5 MG TABLET PO SCH (08:35)
[2022-03-17] MEDS: amLODIPine 10 MG TABLET PO SCH (08:35)
[2022-03-17] MEDS: carvediloL 25 MG TABLET PO SCH ×2 (08:35→16:09)
[2022-03-17] MEDS: FERROUS SULFATE 325 MG TABLET PO SCH (08:36)
[2022-03-17] MEDS: ENOXAPARIN 30 MG/0.3 ML SYRINGE SUBCUT SCH (09:05)
[2022-03-17] MEDS: SODIUM ZIRCONIUM CYCLOSILICATE 10 GM PACK PO SCH (09:20)
[2022-03-17] MEDS: SODIUM CHLORIDE 0.45% 1,000 ML IV SCH (16:11)
[2022-03-17] MEDS ORDERED: TUBERCULIN SKIN TEST 0.1 ML SYRINGE INTRADERM ONE (19:26)
[2022-03-18 05:21] LABS: Basophils % 0.7 % (0.0-0.8); Eosinophils # 0.2 10*3/uL (0.0-0.87); Hematocrit 23.3 VOL% (35.7-47.0); Hemoglobin 7.6 GM/DL (12.0-16.0); Immature Granulocytes % 0.4 %; Immature Granulocytes Absolute 0.02 #; Lymphocytes # 1.6 10*3/uL (1.4-4.0); Lymphocytes % 34.8 % (21.3-54.2); Mean Corpuscular HGB Conc 32.6 GM/DL (32-36); Mean Corpuscular Volume 102.2 FL (87-102); Mean Platelet Volume 10.3 FL (9.6-12.0); Monocytes # 0.6 10*3/uL (0.11-0.8); Monocytes % 14.2 % (1.7-12.7); Neutrophils % 45.9 % (38.7-73.9); Platelet Count 115 T/CUMM (130-400); Red Blood Count 2.28 MC/CUMM (3.8-5.5); Red Cell Distribution Width 11.9 % (9.3-17.3); White Blood Count 4.5 T/CUMM (4-12)
[2022-03-18 05:38] LABS: Osmolality,Calculated 284.7 MOS/KG (273-304); Potassium 4.2 MMOL/L (3.5-5.1)
[2022-03-18] MEDS: LEVOTHYROXINE 75 MCG TABLET PO SCH (07:07)
[2022-03-18] MEDS: SODIUM ZIRCONIUM CYCLOSILICATE 10 GM PACK PO SCH (09:05)
[2022-03-18] MEDS: FERROUS SULFATE 325 MG TABLET PO SCH (09:06)
[2022-03-18] MEDS: ASPIRIN EC 81 MG TABLET PO SCH (09:06)
[2022-03-18] MEDS: ATORVASTATIN 40 MG TABLET PO SCH (09:06)
[2022-03-18] MEDS: hydrALAZINE 25 MG TABLET PO SCH ×3 (09:07→21:22)
[2022-03-18] MEDS: ENOXAPARIN 30 MG/0.3 ML SYRINGE SUBCUT SCH (09:07)
[2022-03-18] MEDS: PANTOPRAZOLE 40 MG TABLET PO SCH (09:07)
[2022-03-18] MEDS: MEMANTINE 5 MG TABLET PO SCH (09:07)
[2022-03-18] MEDS: amLODIPine 10 MG TABLET PO SCH (09:07)
[2022-03-18] MEDS: carvediloL 25 MG TABLET PO SCH ×2 (09:07→17:21)
[2022-03-18] MEDS: ISOSORBIDE MONONITRATE 30 MG TABLET PO SCH (09:08)
[2022-03-18] MEDS: SODIUM CHLORIDE 0.45% 1,000 ML IV SCH (09:11)
[2022-03-18] MEDS: ACETAMINOPHEN 325 MG TABLET PO PRN (21:23)
[2022-03-19] MEDS: ACETAMINOPHEN 325 MG TABLET PO PRN (04:05)
[2022-03-19 05:20] LABS: Basophils % 0.7 % (0.0-0.8); Eosinophils # 0.2 10*3/uL (0.0-0.87); Eosinophils % 4.5 % (0.00-10.9); Hematocrit 24.8 VOL% (35.7-47.0); Hemoglobin 8.2 GM/DL (12.0-16.0); Immature Granulocytes % 0.2 %; Immature Granulocytes Absolute 0.01 #; Lymphocytes # 1.6 10*3/uL (1.4-4.0); Lymphocytes % 34.6 % (21.3-54.2); Mean Corpuscular HGB Conc 33.1 GM/DL (32-36); Mean Corpuscular Volume 102.5 FL (87-102); Monocytes # 0.6 10*3/uL (0.11-0.8); Monocytes % 14.3 % (1.7-12.7); Neutrophils % 45.7 % (38.7-73.9); Platelet Count 138 T/CUMM (130-400); Red Blood Count 2.42 MC/CUMM (3.8-5.5); Red Cell Distribution Width 11.9 % (9.3-17.3); White Blood Count 4.5 T/CUMM (4-12)
[2022-03-19 05:43] LABS: Calcium 8.5 MG/DL (8.5-10.1); Osmolality,Calculated 283.5 MOS/KG (273-304); Potassium 3.7 MMOL/L (3.5-5.1)
[2022-03-19 05:46] LABS: Platelet Estimate Adequate
[2022-03-19] MEDS: LEVOTHYROXINE 75 MCG TABLET PO SCH (07:02)
[2022-03-19] MEDS: amLODIPine 10 MG TABLET PO SCH (08:46)
[2022-03-19] MEDS: ENOXAPARIN 30 MG/0.3 ML SYRINGE SUBCUT SCH (08:46)
[2022-03-19] MEDS: ASPIRIN EC 81 MG TABLET PO SCH (08:46)
[2022-03-19] MEDS: MEMANTINE 5 MG TABLET PO SCH (08:46)
[2022-03-19] MEDS: FERROUS SULFATE 325 MG TABLET PO SCH (08:47)
[2022-03-19] MEDS: ISOSORBIDE MONONITRATE 30 MG TABLET PO SCH (08:47)
[2022-03-19] MEDS: ATORVASTATIN 40 MG TABLET PO SCH (08:47)
[2022-03-19] MEDS: carvediloL 25 MG TABLET PO SCH ×2 (08:47→16:33)
[2022-03-19] MEDS: SODIUM ZIRCONIUM CYCLOSILICATE 10 GM PACK PO SCH (08:47)
[2022-03-19] MEDS: hydrALAZINE 25 MG TABLET PO SCH ×3 (08:47→22:00)
[2022-03-19] MEDS: PANTOPRAZOLE 40 MG TABLET PO SCH (08:47)
[2022-03-20 05:44] LABS: Basophils % 0.5 % (0.0-0.8); Eosinophils # 0.2 10*3/uL (0.0-0.87); Eosinophils % 4.8 % (0.00-10.9); Hematocrit 24.6 VOL% (35.7-47.0); Immature Granulocytes % 0.5 %; Immature Granulocytes Absolute 0.02 #; Lymphocytes # 1.5 10*3/uL (1.4-4.0); Mean Corpuscular HGB Conc 32.5 GM/DL (32-36); Mean Corpuscular Volume 102.5 FL (87-102); Mean Platelet Volume 10.1 FL (9.6-12.0); Monocytes # 0.6 10*3/uL (0.11-0.8); Monocytes % 13.9 % (1.7-12.7); Neutrophils % 45.3 % (38.7-73.9); Platelet Count 136 T/CUMM (130-400); Red Cell Distribution Width 12.3 % (9.3-17.3); White Blood Count 4.4 T/CUMM (4-12)
[2022-03-20 06:03] LABS: Calcium 8.3 MG/DL (8.5-10.1); Osmolality,Calculated 289.1 MOS/KG (273-304); Potassium 3.7 MMOL/L (3.5-5.1)
[2022-03-20] MEDS: LEVOTHYROXINE 75 MCG TABLET PO SCH (06:25)
[2022-03-20] MEDS: MEMANTINE 5 MG TABLET PO SCH (09:19)
[2022-03-20] MEDS: amLODIPine 10 MG TABLET PO SCH (09:19)
[2022-03-20] MEDS: ATORVASTATIN 40 MG TABLET PO SCH (09:20)
[2022-03-20] MEDS: ISOSORBIDE MONONITRATE 30 MG TABLET PO SCH (09:20)
[2022-03-20] MEDS: ASPIRIN EC 81 MG TABLET PO SCH (09:20)
[2022-03-20] MEDS: carvediloL 25 MG TABLET PO SCH (09:20)
[2022-03-20] MEDS: hydrALAZINE 25 MG TABLET PO SCH (09:20)
[2022-03-20] MEDS: PANTOPRAZOLE 40 MG TABLET PO SCH (09:20)
[2022-03-20] MEDS: FERROUS SULFATE 325 MG TABLET PO SCH (09:20)
[2022-03-20] MEDS: ENOXAPARIN 30 MG/0.3 ML SYRINGE SUBCUT SCH (09:22)
[2022-03-20] MEDS: SODIUM ZIRCONIUM CYCLOSILICATE 10 GM PACK PO SCH (09:22)
[2022-03-20 12:57] VITALS: BP 118/63
== END 2022-03-20 14:41 | DRG 305 ==
LOC: N.ED 14:09 → SUATTDRO 16:57 → N.EDINP 16:57 → INTOOBSV 16:57 → N.TELES 18:09
PROVIDERS: ADMIT Emergency Medicine; ATTEND Hospitalist